=== PATIENT | female | born 1980 | race Caucasian/White ===

== ENCOUNTER → 2018-03-20 | Outpatient (CLI) | payer BC ==
[~2018-03-20] MED LIST: LANS15EC PO; MEDR150I; OXYACE5T PO; VIT D; Verotin-Gr Cap1 EACH
== END | disposition home or self-care (01) ==
LOC: LAB SHORT 16:00 → LAB 16:00
PROVIDERS: Nurse Practitioner Women's Health
DX: Z12.4 Encounter for screening for malignant neoplasm of cervix (principal); Z91.89 Other specified personal risk factors, not elsewhere classified
CPT/HCPCS: 87624; G0123

== ENCOUNTER → 2018-05-22 | Outpatient (CLI) | payer BC ==
[2018-05-22 15:42] LABS: Astrovirus Not Detected (NOT DETECT); Campylobacter Sp Not Detected (NOT DETECT); Cryptosporidium Not Detected (NOT DETECT); Cyclospora Cayetanensis Not Detected (NOT DETECT); E. Coli O157 Not Detected (NOT DETECT); Entamoeba Histolytica Not Detected (NOT DETECT); Enteroaggregative E. coli-EAEC Not Detected (NOT DETECT); Enterotoxigenic E. coli-ETEC Not Detected (NOT DETECT); Giardia Lamblia Not Detected (NOT DETECT); Norovirus GI/GII Not Detected (NOT DETECT); Plesiomonas Shigelloides Not Detected (NOT DETECT); Rotavirus A Not Detected (NOT DETECT); Salmonella Sp Not Detected (NOT DETECT); Sapovirus Not Detected (NOT DETECT); Shiga Toxin-prod E. coli-STEC Not Detected (NOT DETECT); Shigella/Enteroin E. coli-EIEC Not Detected (NOT DETECT); Vibrio Cholerae Not Detected (NOT DETECT); Vibrio Sp Not Detected (NOT DETECT); Yersinia Enterocolitica Not Detected (NOT DETECT)
[2018-05-22 19:51] LABS: Adenovirus F 40/41 Detected (NOT DETECT); Enteropathogenic E. coli-EPEC Detected (NOT DETECT)
== END | disposition home or self-care (01) ==
LOC: LAB SHORT 15:30 → OLS 15:30
PROVIDERS: Hospitalist
DX: R19.7 Diarrhea, unspecified (principal)
CPT/HCPCS: 87507

== ENCOUNTER → 2019-04-07 | Outpatient (CLI) | payer BC ==
[2019-04-08 15:06] LABS: HPV 16 Negative (Negative); HPV 18 Negative (Negative); HPV OTHER HR TYPES Negative (Negative)
== END | disposition home or self-care (01) ==
LOC: LAB 12:59 → LAB SHORT 12:59
PROVIDERS: Nurse Practitioner Women's Health
DX: Z12.4 Encounter for screening for malignant neoplasm of cervix (principal); Z91.89 Other specified personal risk factors, not elsewhere classified
CPT/HCPCS: 87624; G0123

== ENCOUNTER 2019-07-29 10:12 | Day surgery (SDC) | payer BC | END 2019-07-29 22:44 | disposition home or self-care (01) | LOC: MOI US 10:12 | DX: N63.23 Unspecified lump in the left breast, lower outer quadrant (principal) | CPT/HCPCS: 19083; 77065; 88305; 88341; 88342; A4648; G0279 ==

== ENCOUNTER 2019-08-10 07:17 | Day surgery (SDC) | payer BC ==
[2019-08-10] MEDS ORDERED: LEVSOD25 PO (14:16)
[2019-08-10] MEDS ORDERED: MELATONIN5 M1 PO (14:18)
[2019-08-10] MEDS ORDERED: TURMERIC PO (14:18)
[2019-08-10] MEDS ORDERED: PROBIOTIC PO (14:21)
[2019-08-10] MEDS ORDERED: RIZATRIPTAN10 MG SL (14:21)
[2019-08-10] MEDS ORDERED: IBUP400 PO (14:22)
[2019-08-10] MEDS ORDERED: CYCL10 PO (14:23)
== END 2019-08-10 22:55 | disposition home or self-care (01) ==
LOC: MOI US 07:17
DX: N64.89 Other specified disorders of breast (principal); R92.8 Other abnormal and inconclusive findings on diagnostic imaging of breast
CPT/HCPCS: 19285; 77065; G0279

== ENCOUNTER 2019-08-12 09:36 | Day surgery (SDC) | payer BC ==
[~2019-08-12] VITALS: Ht 170.2 cm; Wt 96.9 kg
[~2019-08-12 09:36] MED LIST changes: +CYCL10 PO; +IBUP400 PO; +LEVSOD25 PO; +MELATONIN5 M1 PO; +PROBIOTIC PO; +RIZATRIPTAN10 MG SL; +TURMERIC PO
--- NOTE | 2019-08-12 10:20 | NUR ---
History, Chart, Medications and Allergies reviewed before start of procedure. Lungs clear T/O to Auscultation. Patient confirms NPO status and agrees with scheduled surgery. Pre-Op teaching done. Pt verbalizes understanding. Patient reports completing Chlorhexadine shower X2 prior to admission to hospital.
--- NOTE | 2019-08-12 11:05 | NUR ---
ASSUMING PATIENT CARE. RECIEVED REPORT FROM ALTA TOLEDO RN.
--- NOTE | 2019-08-12 14:44 | NUR ---
"DAY SURGERY RN | DISCHARGE VSS. A/O. Discharge instructions and Rx given. 60 ml emesis earlier in stepdown. Nausea resolved. Denies excessive pain. Tolerating PO fluids and crackers. Taken to front entrance in wheelchair by volunteer."
== END 2019-08-12 22:53 | disposition home or self-care (01) ==
LOC: RAD 09:36 → ORSCMMR 09:37 → RAD 11:00
PROVIDERS: Surgery
PROC: 0HBU0ZX Excision of Left Breast, Open Approach, Diagnostic (ICD-10-PCS; principal; 2019-08-12 11:00)
DX: N60.12 Diffuse cystic mastopathy of left breast (principal); N62 Hypertrophy of breast
CPT/HCPCS: 76098; 88307; 88342; A9270-GY; J0690; J1100; J2250; J2405; J2704; J3010; J7120

== ENCOUNTER → 2019-09-01 | Outpatient (CLI) | payer BC | END | disposition home or self-care (01) | LOC: LAB SHORT 10:41 → PLD 10:41 | DX: D22.5 Melanocytic nevi of trunk (principal); D22.21 Melanocytic nevi of right ear and external auricular canal | CPT/HCPCS: 88305 ==

== ENCOUNTER → 2019-10-08 | Outpatient (CLI) | payer BC | END | disposition home or self-care (01) | LOC: LAB 07:40 → LAB SHORT 07:40 | DX: D22.21 Melanocytic nevi of right ear and external auricular canal (principal) | CPT/HCPCS: 88305 ==

== ENCOUNTER → 2024-10-05 | Outpatient (CLI) | payer BC ==
[2024-10-05 18:50] LABS: BASOPHILS ABSOLUTE AUTO 0.04 K/mm3 (0.00-0.23); BASOPHILS PERCENT AUTO 0 % (0-2); EOSINOPHILS ABSOLUTE AUTO 0.07 K/mm3 (0.00-0.68); EOSINOPHILS PERCENT AUTO 1 % (0-6); Hemoglobin 13.7 g/dL (11.5-16.0); IMMATURE GRAN ABSOLUTE AUTO 0.03 K/mm3 (0.00-0.10); IMMATURE GRAN PERCENT AUTO 0 % (0-1); LYMPHOCYTES ABSOLUTE AUTO 1.93 K/mm3 (0.84-5.20); LYMPHOCYTES PERCENT AUTO 18 % (21-46); MONOCYTES ABSOLUTE AUTO 0.63 K/mm3 (0.16-1.47); MONOCYTES PERCENT AUTO 6 % (4-13); Mean Corpuscular HGB 30.6 pg (26.0-34.0); Mean Corpuscular HGB Conc 33.4 g/dL (31.5-36.5); Mean Corpuscular Volume 92 fL (80-100); Mean Platelet Volume 10.9 fL (9.1-12.4); NEUTROPHILS ABSOLUTE AUTO 8.31 K/mm3 (1.96-9.15); NEUTROPHILS PERCENT AUTO 76 % (41-73); Platelet Count 379 K/mm3 (150-400); RDW Coefficient Variation 11.7 % (11.7-14.2); RDW Standard Deviation 39.4 fL (35.1-46.3); Red Blood Cell Count 4.48 M/mm3 (3.80-5.20); White Blood Cell Count 11.01 K/mm3 (4.00-11.30)
[2024-10-08 00:55] LABS: EBV AB TO EARLY (D) AG IGG 17.9 U/mL (0.0-10.9); EBV AB TO VIRAL CAPSID AG IGM <10.0 U/mL (0.0-43.9)
[2024-10-08 12:25] LABS: ANTINUCLEAR AB (ANA),HEP-2,IGG <1:80 (<1:80)
== END ==
LOC: LAB SHORT 16:40 → LAB 16:40
PROVIDERS: Hospitalist
DX: R53.83 Other fatigue (principal); M25.50 Pain in unspecified joint
CPT/HCPCS: 84443; 85025; 85651; 86039; 86430; 86663; 86664; 86665

== ENCOUNTER 2024-12-18 08:47 | Day surgery (SDC) | payer BC ==
[~2024-12-18] VITALS: Ht 172.7 cm; Wt 98.7 kg
[~2024-12-18 08:47] MED LIST changes: +CAL-CITRATE PL1 EAC2 PO; +Fiber625 MG PO; +LEVSOD75 PO; +Lactated Ringer's 1,000 ML IV ONE; +OMEGA-3 FISH O1 EAC6; +RIZATRIPTAN10 MG PO; +[UNRECOGNIZED DRUG - CODE] PO; +[UNRECOGNIZED DRUG - OTHER]; +[UNRECOGNIZED DRUG - OTHER]; +[UNRECOGNIZED DRUG - OTHER] PO; +propofoL 50 ML IV ONE
[2024-12-18] MEDS ORDERED: ACET325 (09:41)
[2024-12-18] MEDS ORDERED: ASPI81CH (09:41)
[2024-12-18] MEDS ORDERED: Lactated Ringer's 1,000 ML IV ONE (10:11)
[2024-12-18 11:03] VITALS: BP 124/77
== END 2024-12-18 11:06 | disposition home or self-care (01) ==
LOC: ORSCSDS 08:47
PROVIDERS: Surgery
PROC: 0DJD8ZZ Inspection of Lower Intestinal Tract, Via Natural or Artificial Opening Endoscopic (ICD-10-PCS; principal; 2024-12-18 10:15)
DX: Z12.11 Encounter for screening for malignant neoplasm of colon (principal); E03.9 Hypothyroidism, unspecified; Z79.899 Other long term (current) drug therapy
CPT/HCPCS: J2704; J7120